=== PATIENT | female | born 1985 | race Caucasian/White ===

== ENCOUNTER 2016-12-06 15:24 | Inpatient (IN) | payer OTHER ==
[~2016-12-06] VITALS: Ht 160 cm; Wt 74.4 kg
[2016-12-06 16:14] VITALS: BP 115/79
[2016-12-06 16:20] VITALS: BP 115/79
[2016-12-06] MEDS ORDERED: WELLBUTRIN XL300 MG PO (16:24)
[2016-12-06] MEDS ORDERED: TRAMADOL 50MG T50 M1 PO (16:24)
[2016-12-06] MEDS ORDERED: HYDROCODONE/ACE1 TA5 PO (16:25)
--- NOTE | 2016-12-06 17:23 | HISTORY AND PHYSICAL REPORT ---
Demographics: Admit date: 12/06/16 Chief complaint: Nausea/left-sided kidney pain/kidney infection PRIMARY DIAGNOSIS: PYELONEPHRITIS FAILED OUTPATIENT TREATMENT Allergies: Coded Allergies: No Known Allergies (12/06/16) History of present illness: History of present illness: 31-year-old white female with a couple of medical problems involving ongoing colitis and anxiety disorder who came to the office today with chief complaint of significant nausea, significant issues with left-sided back pain and vomiting. She was diagnosed with urinary tract infection at urgent treatment Center in [place] 5 days ago, placed on Bactrim, feels a little bit better but feels like she has low-grade temperatures, chills and vomiting and poor fluid intake. In the office she was found to have CVA tenderness, dehydrated, admitted to hospital given failure of outpatient therapy. Past medical history: Family HX Diabetes No CAD Yes Hypertension Yes Hyperlipidemia Yes Cancer Yes TB No Immunization HX DT/Tetanus 1-4 YRS Flu NEVER Pneumonia NEVER TB Test in last year No General Angina: No MN: No Hypertension? No Hyperlipidemia? No CHF? No COPD? No Asthma? No Hernia? No CVA? No Seizures? No Diabetes? No UTI? Yes Stones? Yes GB Disease: No Hepatitis? No Cataracts? No Glaucoma? No TB? No Cancer? No Past Surgical HX Previous Surgery?Y PINS IN TOE-5 YEARS AGO KIDNEY STONE - 2002 WISDOM TEETH- 2003 Current home meds: Reported Medications BUPROPION HCL (Wellbutrin XL 300MG) 300 MG PO DAILY TRAMADOL HCL (Tramadol) 50 MG PO Q8HP PRN PAIN HYDROCODONE/ACETAMINOPHEN (Lortab 10-325 (generic) Tablet) 1 TAB PO Q6HP PRN PAIN Social Hx: Smoking HX Tobacco Yes Type Cigarettes Packs/day < 1 PACK Are you/the child exposed to second-hand smoke: Yes Alcohol Alcohol: No Hx of Drug Use Drug Use? No Patien't marital status is Patient's support system is excellent Review of systems: Constitutional chills, fever, malaise, weakness. Respiratory No: no symptoms reported. Cardiovascular No no symptoms reported Gastrointestinal/Abdominal nausea, poor appetite, poor fluid intake Genitourinary see HPI. Musculoskeletal No: no symptoms reported. Neurological No: see HPI. Exam: Lab data for last 24 hours: Microbiology 12/06 UNK BLOOD: Anaerobic Blood Culture - ORD 12/06 UNK BLOOD: Aerobic Blood Culture - ORD 12/06 UNK BLOOD: Anaerobic Blood Culture - ORD 12/06 UNK BLOOD: Aerobic Blood Culture - ORD Admission vital signs: 1ST Vital Signs Result Date Time Pulse Ox 96 12/06 1614 O2 Delivery ROOM AIR 12/06 1614 B/P 115/79 12/06 161 Temp 98.5 12/06 1614 Pulse 85 12/06 1614 Resp 18 12/06 1614 Additional information: Alert, oriented, tachycardic at 110 in the office. Orthostatic change to 125 on standing. Dry oral mucosa, lungs are clear, significant CVA tenderness of the left posterior back. Abdomen soft, nontender. No edema or clubbing. Neurologic exam intact. Plan: Problem List 1. Pyelonephritis Plan: Admit to hospital, IV antibiotics and fluids. Image kidney. Obtain old culture results at 8709
[2016-12-06 18:28] LABS: HEMOGLOBIN 14.1 g/dL (12.2-16.2); LYMPH % 33.1 % (10-50.0)
[2016-12-06 19:03] LABS: URINE BLOOD TRACE-INTACT (NEG)
[2016-12-06 19:22] LABS: URINE BILIRUBIN - DIPSTICK 2+ (NEG)
[2016-12-06 19:37] VITALS: BP 107/62
[2016-12-07 04:10] VITALS: BP 112/74
[2016-12-07 07:26] VITALS: BP 102/63
--- NOTE | 2016-12-07 07:51 | PHARMACY CLINIC NOTE ---
Patient Demographics Patient Demographics Admission date: 12/06/16 Date: 12/07/16 Time: 0750 Allergies Coded Allergies: No Known Allergies (12/06/16) HEIGHT- FT: 5 IN: 3.00 K.447 VTE General Information Labs: Laboratory Tests 12/06 1745 Hematology Hgb (12.2 - 16.2 g/dL) 14.1 Hct (37.0 - 47.0 %) 42.2 Plt Count (142 - 424 K/mm3) 394 Disclaimer The following section includes nursing documentation that has been pulled in for pharmacy review. Patient's VTE score: 0 Patient's VTE Risk: VERY LOW RISK Clinical trial participant? No VTE prophylaxis [id number] VTE prophylaxis ordered? Yes Type of prophylaxis/treatment: DICK at 0750
--- NOTE | 2016-12-07 08:25 | RADIOLOGY REPORT PS360 ---
CT ABD PELVIS W/ CONTRAST HISTORY: PYELO bilateral nephritis Patient Age: 31 years: Female Ordering Physician: Oliver Osei MD TECHNIQUE: Helical CT scanning performed through the abdomen or pelvis following 75 cc Isovue-370. Sagittal and coronal reconstructions on CT workstation. COMPARISON : Previous CT abdomen pelvis from July 2014 used as comparison. FINDINGS Lung bases clear no acute findings Abdomen: Liver spleen pancreas adrenals unremarkable.. Gallbladder no calcified stones. No significant findings. No retroperitoneal nor mesenteric adenopathy. KIDNEYS. No urinary tract calculi or obstruction Left kidney. Slightly decreased enhancement focally at the upper pole left kidney may reflect a focal area of pyelonephritis./Or So-called Lobar nephronia.. Right kidney. No significant findings. Minimal lobulation or scarring towards upper pole right greater than left.. Pelvis. Appears to be Tampon in place of vaginal canal. Previously uterus anteverted today retroverted with. generous cervix noted on axial images.... Cannot exclude cervicitis or other features here. This may warrant follow-up.. Uterus otherwise normal size and unremarkable. Modest bilateral ovaries with small follicles.No significant free fluid the pelvis. Urinary bladder is fairly empty with no calculi or distal findings could GI tract. Postsurgical changes at cecum.. Generous air-fluid level at right colon reflecting liquid stool. Moderate solid stool seen through the left colon and transverse colon. Generous gas sigmoid colon. Appendix surgically removed. Osseous structures but no significant findings .IMPRESSION: 1. Small area of decreased enhancement upper pole left kidney-likely reflects area of more pronounced focal nephritis.. No urinary tract calculi nor obstruction otherwise seen. Additional minor observations: 2.. Prominent liquid stool yields generous air-fluid level at right colon- could reflect developing diarrhea. 3.. Appears to be tampon in place . Relatively Generous cervix incidentally noted just superior to this. Warrants correlation. Could reflect cervicitis or other process. Could merely be anatomical variation.
--- NOTE | 2016-12-07 08:44 | ACUTE CARE PROGRESS NOTE (QUA) ---
Progress Notes Subjective Date 12/07/16 Time 0740 Note Patient is feeling much better this morning. No fevers through the night. She was able to eat a piece of toast this morning without any nausea. Alert and oriented x3. Rate and rhythm regular. No LE edema. Pulses 2+. Lung sounds clear and equal throughout. Abdomen soft and non-tender. Continues to have significant left sided CVA tenderness Patient/family reports: feeling better Nursing reports: no complaints Objective Findings Last VS-Temp:98.5 B/P:102/63 Pulse:54 Resp:18 SaO2:97 ROOM AIR Last weight lbs:164 oz:2 K.447 Method:Bed Scales Reviewed: medications, vital signs, lab results, radiology report Assessment/Plan Problem List 1. Pyelonephritis Patient condition Stable Plan: continue current care This inpt stay is expected to cross 2 MNs from start of care Yes Comments: Continue IV Levaquin and saline infusion. Push oral fluids. Consider discharge tomorrow. at 0844
[2016-12-07 11:00] VITALS: BP 104/60
[2016-12-07 15:33] VITALS: BP 104/60
[2016-12-07 20:04] VITALS: BP 106/60
[2016-12-08 04:30] VITALS: BP 95/53; BP 96/53
[2016-12-08] MEDS ORDERED: LEVAQUIN500 MG PO (07:43)
--- NOTE | 2016-12-08 07:43 | ACUTE CARE PROGRESS NOTE (QUA) ---
Progress Notes Subjective Date 12/08/16 Time 0741 Patient/family reports: feeling better, no complaints (good po) Nursing reports: alert, no complaints Objective Findings Last VS-Temp:98.3 B/P:96/53 Pulse:64 Resp:18 SaO2:95 ROOM AIR Last weight lbs:164 oz:2 K.447 Method:Bed Scales Exam General appearance: normal appearance, alert Eyes: normal exam, anicteric ENT: normal exam, mucous membranes moist Cardiovascular: no JVD, no ectopics Respiratory: normal exam, aerating well ABD: tenderness (but improved, on left side) Assessment/Plan Problem List 1. Pyelonephritis Patient condition Improving Plan: continue current care, initiate discharge plan This inpt stay is expected to cross 2 MNs from start of care Yes at 0742
[2016-12-08] MEDS ORDERED: ZOFRAN4 MG PO (07:44)
--- NOTE | 2016-12-08 07:46 | DISCHARGE SUMMARY STANDARD ---
Demographics Admit date: 12/06/16 Discharge date: 12/08/16 History of present illness History of present illness 31-year-old white female with a couple of medical problems involving ongoing colitis and anxiety disorder who came to the office today with chief complaint of significant nausea, significant issues with left-sided back pain and vomiting. She was diagnosed with urinary tract infection at urgent treatment Center in [place] 5 days ago, placed on Bactrim, feels a little bit better but feels like she has low-grade temperatures, chills and vomiting and poor fluid intake. In the office she was found to have CVA tenderness, dehydrated, admitted to hospital given failure of outpatient therapy. Hospital Course Hospital Course: Patient was admitted, placed on intravenous levofloxacin after sensitivities were obtained from urgent treatment center in [place] showing penicillin and cephalosporin resistance. Patient did well and improved over the next 24 hours vis--vis fevers and CVA pain. CT scanning revealed evidence of scarring consistent with acute pyelonephritis but no abscess formation. This morning the patient is doing well, exam has improved. She'll be discharged home with antibiotics, anti-emetics and close follow-up. Discharge diagnoses Problem List 1. Pyelonephritis Medications Medications: Discharge meds are as noted. Follow up Follow up in office in: 4 DAYS with: MATTHEW STERN APRN at 0745
--- NOTE | 2016-12-08 07:46 | DISCHARGE SUMMARY STANDARD ---
Demographics Admit date: 12/06/16 Discharge date: 12/08/16 History of present illness History of present illness 31-year-old white female with a couple of medical problems involving ongoing colitis and anxiety disorder who came to the office today with chief complaint of significant nausea, significant issues with left-sided back pain and vomiting. She was diagnosed with urinary tract infection at urgent treatment Center in [place] 5 days ago, placed on Bactrim, feels a little bit better but feels like she has low-grade temperatures, chills and vomiting and poor fluid intake. In the office she was found to have CVA tenderness, dehydrated, admitted to hospital given failure of outpatient therapy. Hospital Course Hospital Course: Patient was admitted, placed on intravenous levofloxacin after sensitivities were obtained from urgent treatment center in [place] showing penicillin and cephalosporin resistance. Patient did well and improved over the next 24 hours vis--vis fevers and CVA pain. CT scanning revealed evidence of scarring consistent with acute pyelonephritis but no abscess formation. This morning the patient is doing well, exam has improved. She'll be discharged home with antibiotics, anti-emetics and close follow-up. Discharge diagnoses Problem List 1. Pyelonephritis Medications Medications: Discharge meds are as noted. Follow up Follow up in office in: 4 DAYS with: MATTHEW STERN APRN at 0745
[2016-12-08 08:00] VITALS: BP 111/67
[2016-12-08 08:15] VITALS: BP 96/53
== END 2016-12-08 08:23 | disposition home or self-care (01) | DRG 690 ==
LOC: 2ND 15:24
PROVIDERS: Internal Medicine Adolescent Medicine
DX: N10 Acute pyelonephritis (principal); E86.0 Dehydration
CPT/HCPCS: J2405

== ENCOUNTER → 2016-12-19 | Outpatient (CLI) | payer OTHER ==
[2016-12-19 15:37] LABS: HEMOGLOBIN 13.9 g/dL (12.2-16.2)
[2016-12-19 15:38] LABS: LYMPH # 1.3 K/mm3 (0.7-4.5); LYMPH % 18.6 % (10-50.0)
[2016-12-19 16:49] LABS: BUN 9 mg/dL (7-18)
[2016-12-19 17:05] LABS: GFR (ESTIMATED) 74 ML/MIN (59-)
== END ==
LOC: LAB 15:14
PROVIDERS: Nurse Practitioner Family
DX: R50.9 Fever, unspecified (principal); N23 Unspecified renal colic